=== PATIENT | male | born 1985 | race African-American/Black ===

== ENCOUNTER 2017-08-23 12:08 | Emergency (ER) | payer SELFPAY ==
[2017-08-23 12:10] VITALS: BP 177/81; PULSE 93; RESP 14; TEMP 99.8; O2SAT 98
[2017-08-23] MEDS ORDERED: CODE30TA2 PO (15:23)
[2017-08-23] MEDS ORDERED: AMOX500T PO (15:23)
--- NOTE | 2017-08-23 15:27 | PD ---
HPI Chief Complaint: ENT Complaint Time Seen by Provider: 15:06 Travel History International Travel<30 days: No Contact w/Intl Traveler<30days: No Traveled to known affect area: No History of Present Illness HPI C/O RIGHT EAR ACHE , NONRAD, 01/23, SINCE HE USED A JACKHAMMER AT WORK ON WEDNESDAY , BY WEDNESDAY HIS HEARING WAS MUFFLED AND NOTED SOME DROPS OF BLOOD ON HIS PILLOW...HE RETURNS TODAY BECAUSE HE IS STILL HAVING SIMILAR COMPLAINTS. [facility] Past Medical History Medical History: Denies Significant Hx Past Surgical History Surgical History: No Previous Surgery Social History Alcohol Use: Yes (RARE) Tobacco Use: Yes Substance Use: Yes (MARIJUANA AT TIMES) Allergies-Medications (Allergen,Severity, Reaction): Coded Allergies: No Known Allergies (Unverified , 08/23/17) Reported Meds & Prescriptions Reported Meds & Active Scripts Active No Active Prescriptions or Reported Medications Review of Systems Except as stated in HPI: all other systems reviewed are Neg General / Constitutional: No: Fever Eyes: No: Visual changes HENT: Positive: Earache Cardiovascular: No: Chest Pain or Discomfort Respiratory: No: Shortness of Breath Gastrointestinal: No: Abdominal Pain Genitourinary: No: Dysuria Musculoskeletal: No: Pain Skin: No Rash Neurologic: No: Weakness Psychiatric: No: Depression Endocrine: No: Polydipsia Hematologic/Lymphatic: No: Easy Bruising Physical Exam Narrative GENERAL: SKIN: Warm and dry. HEAD: Atraumatic. Normocephalic. EYES: Pupils equal and round. No scleral icterus. No injection or drainage. ENT: No nasal bleeding or discharge. Mucous membranes pink and moist....TM RUPTURE NOTED, WITH RETROTYMPANIC CLEAR/CLOUDY FLUID C/W EFFUSION. NECK: Trachea midline. No JVD. CARDIOVASCULAR: Regular rate and rhythm. RESPIRATORY: No accessory muscle use. Clear to auscultation. Breath sounds equal bilaterally. GASTROINTESTINAL: Abdomen soft, non-tender, nondistended. MUSCULOSKELETAL: Extremities without clubbing, cyanosis, or edema. No obvious deformities. NEUROLOGICAL: Awake and alert. No obvious cranial nerve deficits. Motor grossly within normal limits. Five out of 5 muscle strength in the arms and legs. Normal speech. PSYCHIATRIC: Appropriate mood and affect; insight and judgment normal. Data Data Last Documented VS Vital Signs Date Time Temp Pulse Resp B/P (MAP) Pulse Ox O2 Delivery O2 Flow Rate FiO2 08/23/17 12:10 99.8 93 14 177/81 (113) 98 MDM Medical Decision Making Medical Screen Exam Complete: Yes Emergency Medical Condition: Yes Medical Record Reviewed: Yes Differential Diagnosis OM V OE V RUPTURED TM Narrative Course BASED ON EXAM RUPTURED TM IS C/W CLINICAL FINDINGS Diagnosis Primary Impression: Ruptured tympanic membrane Qualified Codes: H72.91 - Unspecified perforation of tympanic membrane, right ear Scripts Codeine-Acetaminophen (Codeine-Acetaminophen) 30-300 mg Tab 1 TAB PO Q4H Y for PAIN, #14 TAB 0 Refills Prov: Cheng Pearl MD 08/23/17 Amoxicillin (Amoxicillin) 500 Mg Tab 500 MG PO BID for Infection for 7 Days, #14 TAB 0 Refills Prov: Cheng Pearl MD 08/23/17 Disposition: 01 DISCHARGE HOME Condition: Stable Cheng Pearl MD Aug 23, 2017 15:27
== END 2017-08-23 16:10 | disposition home or self-care (01) ==
LOC: NEPD 12:08
DX: H72.91 Unspecified perforation of tympanic membrane, right ear (principal); Z72.0 Tobacco use
CPT/HCPCS: 99284